=== PATIENT | male | born 1985 | race Caucasian/White ===

== ENCOUNTER 2018-05-08 20:12 | Emergency (ER) | payer OTHER ==
[~2018-05-08] VITALS: Ht 180.3 cm; Wt 86.2 kg
[2018-05-08 20:20] VITALS: BP 146/86
[2018-05-08] MEDS ORDERED: SERTRALINE HCL50 MG PO (20:22)
[2018-05-08] MEDS ORDERED: [UNRECOGNIZED DRUG - REMARK] (20:22)
[2018-05-08] MEDS ORDERED: IBUPROFEN 600600 M1 PO (20:26)
== END 2018-05-08 20:53 | disposition home or self-care (01) ==
LOC: M.ERS 20:12
DX: S61.211A Laceration without foreign body of left index finger without damage to nail, initial encounter (principal); F41.9 Anxiety disorder, unspecified; W26.0XXA Contact with knife, initial encounter; Y93.G3 Activity, cooking and baking; Y92.89 Other specified places as the place of occurrence of the external cause; Y99.8 Other external cause status

== ENCOUNTER 2018-05-28 08:24 | Emergency (ER) | payer OTHER ==
[~2018-05-28] VITALS: Ht 177.8 cm; Wt 86.2 kg
[~2018-05-28 08:24] MED LIST: IBUPROFEN 600600 M1 PO; SERTRALINE HCL50 MG PO; [UNRECOGNIZED DRUG - REMARK]
[2018-05-28] MEDS ORDERED: TRAMADOL 50 MG50 MG PO (08:36)
[2018-05-28 09:16] LABS: ABSOLUTE EOSINOPHILS 0.2 thou/uL (0.0-0.7); ABSOLUTE MONOCYTES 0.5 thou/uL (0.0-1.2); BASOPHILS 0.2 %; EOSINOPHILS 2.5 %; HEMATOCRIT 41.6 % (42.0-52.0); HEMOGLOBIN 14.4 gm/dL (14.0-18.0); LYMPHOCYTES 25.6 %; MCH 30.1 pg (26.0-34.0); MCHC 34.5 g/dL (28.0-37.0); MCV 87.3 fL (80.0-100.0); MONOCYTES 6.8 %; MPV 7.2 fl. (7.2-11.1); NUCLEATED RBCS 0 /100WBC; PLATELET COUNT* 229 thou/uL (150-400); POLYS 64.9 %; RBC 4.77 mil/uL (4.50-6.00); WBC 7.8 thou/uL (4.0-11.0)
[2018-05-28 09:41] LABS: CALCIUM 8.9 mg/dL (8.5-10.1); CREATININE 0.8 mg/dL (0.6-1.3); POTASSIUM 4.1 mmol/L (3.5-5.1); URIC ACID* 6.2 mg/dL (2.6-7.2)
[2018-05-28] MEDS ORDERED: IBUPROFEN 800800 M1 PO (09:51)
[2018-05-28] MEDS ORDERED: HYDROCODONE-AP1 EAC6 PO (09:51)
[2018-05-28 10:06] VITALS: BP 111/70
== END 2018-05-28 10:06 | disposition home or self-care (01) ==
LOC: M.ERS 08:24
PROVIDERS: Emergency Medicine Emergency Medical Services
DX: M10.071 Idiopathic gout, right ankle and foot (principal); F41.9 Anxiety disorder, unspecified